=== PATIENT | female | born 1940 | race Asian ===

== ENCOUNTER → 2016-06-16 | Outpatient (CLI) | payer MEDICARE, OTHER ==
[2016-06-16 16:57] LABS: THYROID STIMULATING HORMONE 2.09 uIU/mL (0.36-3.74)
[2016-06-16 17:27] LABS: HEMOGLOBIN A1C 6.3 % (4.5-6.2)
== END | disposition home or self-care (01) ==
LOC: LABPV 13:16
PROVIDERS: ATTEND Internal Medicine Pulmonary Disease
DX: R35.1 Nocturia (principal); R63.5 Abnormal weight gain
CPT/HCPCS: 83036; 84443

== ENCOUNTER → 2017-05-13 | Outpatient (CLI) | payer MEDICARE, OTHER ==
[~2017-05-13] MED LIST: SODIUM CHLORIDE 0.9% 1,000 ML IV ONE
== END | disposition home or self-care (01) ==
LOC: RADPV 09:52
PROVIDERS: ATTEND Internal Medicine Pulmonary Disease
DX: J98.11 Atelectasis (principal); I51.7 Cardiomegaly
CPT/HCPCS: 71046